=== PATIENT | male | born 1985 | race Two or more races ===

== ENCOUNTER 2025-01-01 09:42 | Emergency (ER) | payer OTHER ==
[2025-01-01] MEDS ORDERED: Ketorolac Tromethamine 30 MG (1 mL) VIAL ONE (11:28)
== END 2025-01-01 12:29 | disposition home or self-care (01) ==
LOC: CSHERS 09:42
DX: B34.9 Viral infection, unspecified (principal); B20 Human immunodeficiency virus [HIV] disease; F17.220 Nicotine dependence, chewing tobacco, uncomplicated
CPT/HCPCS: 87400; 87426; 96372; 99283; J1885

== ENCOUNTER 2025-04-04 22:29 | Inpatient (IN) | payer OTHER ==
[~2025-04-04 22:29] MED LIST: Iopamidol 300 61% 100 ML VIAL FS ONE
[2025-04-05] MEDS ORDERED: Ketorolac Tromethamine 30 MG (1 mL) VIAL ONE
[2025-04-05] MEDS ORDERED: Acetaminophen 500 MG TAB ONE
[2025-04-05] MEDS ORDERED: Cefepime 2 GM VIAL ONE (00:01)
[2025-04-05 00:34] LABS: #Basophils 0.04 10x3/uL (0.0-0.2); #Eosinophils 0.33 10x3/uL (0.0-0.5); #Monocytes 0.87 10x3/uL (0.0-1.1); #Neutrophils 3.92 10x3/uL (1.5-8.4); %Basophils 0.5 % (0.0-2.0); %Eosinophils 4.1 % (0.0-6.0); %Lymphocytes 35.0 % (18.0-47.0); %Monocytes 10.9 % (0.0-10.0); %Neutrophils 49.1 % (40.0-75.0); Hematocrit 40.9 % (38.8-50.0); Hemoglobin 14.6 g/dL (13.5-17.5); Mean Corpuscular Hemoglobin 29.6 pg (27.0-33.0); Mean Corpuscular Volume 83.0 fL (81.2-95.1); Platelet Count 349 10x3/uL (150-450); Red Blood Cell (RBC) Count 4.93 10x6/uL (4.32-5.72); White Blood Cell (WBC) Count 7.99 10x3/uL (3.5-10.5)
[2025-04-05 00:46] LABS: ALT (SGPT) 20 U/L (Less than 45); AST (SGOT) 18 U/L (11-34); Albumin 3.9 g/dL (3.1-4.5); Alkaline Phosphatase 77 U/L (40-110); Anion Gap 11 mmol/L (10-20); BUN (Urea Nitrogen) 17 mg/dL (8.9-20.6); Bilirubin, Total 0.2 mg/dL (0.3-1.2); Calc. Creatinine Clearance 0 mL/min (70-130); Calcium 8.8 mg/dL (7.8-10.44); Carbon Dioxide 25 mmol/L (22-29); Chloride 107 mmol/L (98-107); Globulin 3.0 g/dL (2.4-3.5); Glucose 96 mg/dL (70-105); Potassium 4.1 mmol/L (3.5-5.1); Sodium 139 mmol/L (136-145)
[2025-04-05] MEDS ORDERED: diphenhydrAMINE 50 MG/ML VIAL ONE (00:46)
[2025-04-05] MEDS ORDERED: Senokot S 8.6-50 MG TAB PO PRN (01:57)
[2025-04-05] MEDS ORDERED: Guaifenesin DM 100-10/5 ML UDCUP PO PRN (01:57)
[2025-04-05] MEDS ORDERED: Ondansetron PF 4 MG/2 ML Vial IVP PRN (01:57)
[2025-04-05] MEDS ORDERED: Acetaminophen 325 MG TAB PO PRN (01:57)
[2025-04-05] MEDS ORDERED: Calcium Carbonate 500 MG ChewTAB PO PRN (01:57)
[2025-04-05] MEDS: VANCOMYCIN 2 GRAM/400 ML BAG 2 GM in Premix 1 BAG IVPB SCH (02:30)
[2025-04-05 02:48] VITALS: BMI 31.2
[2025-04-05] MEDS: diphenhydrAMINE 25 MG CAP PO PRN (03:06)
[2025-04-05] MEDS: Ibuprofen 200 MG TAB PO SCH (06:05)
[2025-04-05] MEDS: Enoxaparin 40 MG (0.4 mL) SYRINGE SC SCH (10:10)
[2025-04-05] MEDS: cefTRIAXone\\ROCEPHIN 2 GM in Sodium Chloride 0.9% 100 ML IVPB SCH (10:12)
[2025-04-05] MEDS: VANCOMYCIN 1.75 GM/350 ML BAG 1.75 GM in Premix 1 BAG IVPB SCH (11:41)
[2025-04-05] MEDS: Linezolid 600 MG TAB PO SCH (21:28)
[2025-04-06 05:37] LABS: #Basophils Less than 0.03 10x3/uL (0.0-0.2); #Eosinophils 0.50 10x3/uL (0.0-0.5); #Monocytes 0.63 10x3/uL (0.0-1.1); #Neutrophils 2.83 10x3/uL (1.5-8.4); %Basophils 0.3 % (0.0-2.0); %Eosinophils 7.6 % (0.0-6.0); %Lymphocytes 38.7 % (18.0-47.0); %Monocytes 9.6 % (0.0-10.0); %Neutrophils 43.2 % (40.0-75.0); Hematocrit 40.3 % (38.8-50.0); Hemoglobin 14.1 g/dL (13.5-17.5); Mean Corpuscular Hemoglobin 29.2 pg (27.0-33.0); Mean Corpuscular Volume 83.4 fL (81.2-95.1); Platelet Count 304 10x3/uL (150-450); Red Blood Cell (RBC) Count 4.83 10x6/uL (4.32-5.72); White Blood Cell (WBC) Count 6.56 10x3/uL (3.5-10.5)
[2025-04-06 05:46] LABS: Anion Gap 11 mmol/L (10-20); BUN (Urea Nitrogen) 13 mg/dL (8.9-20.6); Calc. Creatinine Clearance 195 mL/min (70-130); Calcium 8.3 mg/dL (7.8-10.44); Carbon Dioxide 24 mmol/L (22-29); Chloride 109 mmol/L (98-107); Glucose 114 mg/dL (70-105); Potassium 3.7 mmol/L (3.5-5.1); Sodium 140 mmol/L (136-145)
[2025-04-06 10:00] VITALS: BP 107/66; TEMP 97.7
== END 2025-04-06 11:32 | disposition home or self-care (01) | DRG 603 ==
LOC: CSHERS 22:29 → CSHTELE 04-05 02:19 → OBSVTOIN 04-06 08:40
PROVIDERS: ADMIT Student in an Organized Health Care Education/Training Program; ATTEND Family Medicine
DX: L03.113 Cellulitis of right upper limb (principal); Z72.0 Tobacco use; Z21 Asymptomatic human immunodeficiency virus [HIV] infection status
CPT/HCPCS: 36415; 80048; 80053; 82550; 83605; 84145; 85025; 86140; 87040; 87081; 96365; 96367; 96375; 96376; G0378; J0692; J0696; J1200; J1885; J3375; Q9967